=== PATIENT | female | born 1950 | race Caucasian/White ===

== ENCOUNTER 2017-03-06 22:48 | Emergency (ER) | payer OTHER ==
[~2017-03-06] VITALS: Ht 162.6 cm; Wt 119.6 kg
[~2017-03-06 22:48] MED LIST: CITALOPRAM HBR20 MG PO; LISINOPRIL5 MG PO; MOBIC15 MG PO
[2017-03-07] MEDS ORDERED: MYCOSTATIN 100,60 ML PO (02:43)
[2017-03-07 02:54] VITALS: BP 142/80
== END 2017-03-07 02:54 | disposition home or self-care (01) ==
LOC: EME 22:48
DX: J02.8 Acute pharyngitis due to other specified organisms (principal); I10 Essential (primary) hypertension; F41.9 Anxiety disorder, unspecified; Z88.0 Allergy status to penicillin; Z88.5 Allergy status to narcotic agent
CPT/HCPCS: 87651 90; 99281; 99284